=== PATIENT | female | born 1990 | race Two or more races ===

== ENCOUNTER 2021-07-03 13:07 | Emergency (ER) | payer OTHER ==
[~2021-07-03] VITALS: Ht 165.1 cm; Wt 69.4 kg
[2021-07-03 13:40] LABS: Urine Bacteria MANY /hpf (None Seen); Urine Blood 2+ /uL (Negative); Urine Specific Gravity 1.006 (1.001-1.035); Urine WBC 2 /hpf (0 - 5)
[2021-07-03 16:41] VITALS: BP 112/68
== END 2021-07-03 16:41 | disposition home or self-care (01) ==
LOC: ER 13:07
DX: O20.0 Threatened abortion (principal); Z3A.01 Less than 8 weeks gestation of pregnancy; O23.41 Unspecified infection of urinary tract in pregnancy, first trimester
CPT/HCPCS: 36415; 76801; 76817; 81001; 84702